=== PATIENT | male | born 1985 | race Caucasian/White ===

== ENCOUNTER 2024-08-10 20:22 | Emergency (ER) | payer OTHER ==
[~2024-08-10] VITALS: Ht 182.9 cm; Wt 97.5 kg
[2024-08-10 20:49] LABS: BASOPHILS ABSOLUTE AUTO 0.03 K/mm3 (0.00-0.23); BASOPHILS PERCENT AUTO 0 % (0-2); EOSINOPHILS ABSOLUTE AUTO 0.12 K/mm3 (0.00-0.68); EOSINOPHILS PERCENT AUTO 1 % (0-6); Hematocrit 37.1 % (37.0-53.0); Hemoglobin 12.2 g/dL (13.5-17.5); IMMATURE GRAN ABSOLUTE AUTO 0.05 K/mm3 (0.00-0.10); IMMATURE GRAN PERCENT AUTO 1 % (0-1); LYMPHOCYTES ABSOLUTE AUTO 1.35 K/mm3 (0.84-5.20); LYMPHOCYTES PERCENT AUTO 13 % (21-46); MONOCYTES PERCENT AUTO 16 % (4-13); Mean Corpuscular HGB 27.8 pg (26.0-34.0); Mean Corpuscular HGB Conc 32.9 g/dL (31.5-36.5); Mean Corpuscular Volume 85 fL (80-100); Mean Platelet Volume 9.7 fL (9.1-12.4); NEUTROPHILS ABSOLUTE AUTO 7.03 K/mm3 (1.96-9.15); NEUTROPHILS PERCENT AUTO 69 % (41-73); Platelet Count 355 K/mm3 (150-400); RDW Coefficient Variation 11.7 % (11.7-14.2); RDW Standard Deviation 35.9 fL (35.1-46.3); Red Blood Cell Count 4.39 M/mm3 (4.30-5.90); White Blood Cell Count 10.18 K/mm3 (4.00-11.30)
[2024-08-10 21:07] LABS: Albumin/Globulin Ratio 0.6 (0.8-1.8); Bilirubin, Total 0.2 mg/dL (0.1-1.0); Bun/Creatinine Ratio 13.5 (12.0-20.0); Calcium, Blood 8.9 mg/dL (8.5-10.1); Creatinine, Blood 0.82 mg/dL (0.60-1.20); Globulin, Blood 5.2 g/dL (2.2-4.0); Total Protein, Blood 8.2 g/dL (6.4-8.2)
[2024-08-10] MEDS ORDERED: Dexamethasone Sod Phos 10 MG/ML 1ML VIAL IV ONE (23:45)
[2024-08-10] MEDS ORDERED: Acetaminophen 500 MG Tab PO ONE (23:45)
[2024-08-10] MEDS ORDERED: Ketorolac Tromethamine 15mg Vial IV ONE (23:45)
[2024-08-10] MEDS ORDERED: Clindamycin Phosphate 300 MG in NS 50 ML IV ONE (23:45)
[2024-08-10] MEDS ORDERED: Lidocaine 4% 1 Patch TOP ONE (23:50)
[2024-08-11] MEDS ORDERED: CYCL10 PO (00:46)
[2024-08-11] MEDS ORDERED: CLIN300 PO (00:46)
== END 2024-08-11 01:38 | disposition home or self-care (01) ==
LOC: ER 20:22
PROVIDERS: Student in an Organized Health Care Education/Training Program
DX: L03.115 Cellulitis of right lower limb (principal); M54.50 Low back pain, unspecified; Z91.018 Allergy to other foods
CPT/HCPCS: 80053; 85025; 93005; 93010; 93971; 96365; 96375; 99284-25; A9270; J1100; J1885

== ENCOUNTER 2024-08-25 05:43 | Emergency (ER) | payer OTHER ==
[~2024-08-25] VITALS: Ht 182.9 cm; Wt 97.5 kg
[~2024-08-25 05:43] MED LIST: CLIN300 PO; CYCL10 PO
[2024-08-25] MEDS ORDERED: Doxycycline Hyclate 100 MG TAB PO ONE (06:35)
[2024-08-25] MEDS ORDERED: DOXY100 PO (06:37)
== END 2024-08-25 07:51 | disposition home or self-care (01) ==
LOC: ER 05:43
DX: L03.115 Cellulitis of right lower limb (principal); Z91.018 Allergy to other foods
CPT/HCPCS: 99283; A9270